=== PATIENT | female | born 1960 | race Caucasian/White ===

== ENCOUNTER 2017-01-09 13:48 | Emergency (ER) | payer MEDICARE ==
--- NOTE | ~2017-01-09 | ER ---
PATIENT'S NAME: KEIRY MODI [facility] AGE: 56 Y [address] ROOM: [place] [address] LOCATION: [facility] ADMIT DATE: 01/09/2017 ER/Outpatient Report DISCHARGE DATE: 01/09/2017 FAMILY PHYSICIAN: PHYSICIAN, NO ATTENDING PHYSICIAN: Rodrigo Cannon Time of Arrival: 1348 hours. Time of Evaluation: 1348. CHIEF COMPLAINT: Recent falls and chronic low back pain. HISTORY OF PRESENT ILLNESS: This is a 56-year-old female, who presents to the ER with her . The patient has never been seen here before, and she states that she has chronic medical history. She states that she has had chronic low back pain for over 25 years and has seen multiple doctors for it. She states that she was supposed to have a surgery done into her lower back, but decided to work with a pain specialist instead of having her back surgery, and now she states that she is regretting that at this time. She states she has chronic pain that radiates into her right foot. She states she has had no loss of bowel or bladder. Her states that she has had recent weight loss as well. She states she has not been running any fevers. No chills. They recently moved to [place] from [place] and are up by [email or web address]. She was evaluated in [place] recently and was just hospitalized there for an unresponsive episode. She states that she has not had any recent MRIs or imaging of her lower back besides x-rays. Her states that she has had some ground level falls, in which she did strike her head. He states that these falls have recurred over the past 5 or 6 years, but she has never had a CAT scan done of her head to make sure that everything has been okay. She has chronic hearing loss as well. She denies any dizziness or lightheadedness at this time. She states she does have some weakness in her right lower extremity secondary to her lower back pain. ALLERGIES: PLEASE SEE MEDICATION LIST IN NURSE'S NOTES. MEDICATIONS: Please see medication list in nurse's notes. PAST MEDICAL HISTORY: 1. History of degenerative disk disease with chronic low back pain with radiculopathy down her right leg. 2. History of colitis. 3. History of rheumatoid arthritis. PATIENT'S NAME: KEIRY MODI [facility] AGE: 56 Y [address] ROOM: [place], [place] [address] LOCATION: ED ADMIT DATE: 01/09/2017 ER/Outpatient Report DISCHARGE DATE: 01/09/2017 FAMILY PHYSICIAN: PHYSICIAN, NO ATTENDING PHYSICIAN: Rodrigo Cannon 4. Chronic history of weight loss and hard of hearing. SOCIAL HISTORY: Denies smoking, drug, or alcohol use. REVIEW OF SYSTEMS: All systems were reviewed and were negative with the exception of those discussed in the HPI. PHYSICAL EXAMINATION: VITAL SIGNS: Blood pressure is 190/105, pulse 123, respirations 18, temperature 98.3 degrees tympanically, saturations 94% on room air. Farhan Coma Score is 15. GENERAL: An alert, calm female, in no acute distress. Her and her were a little unclear of why exactly they were here in the emergency room, but they both tell different parts of her chronic past medical history. HEENT: Head: Normocephalic. Eyes: Pupils are equal and reactive to light. She does display moist mucous membranes. NECK: Supple. No lymphadenopathy. LUNGS: Clear to auscultation. HEART: Tachycardic. Normal rhythm. EXTREMITIES: No clubbing or edema noted. She has decreased strength in her right lower extremity secondary to her low back pain. She does have tenderness with light palpation over the top of her right foot if she does withdrawal her foot up into her stomach when I do palpate the skin of the top of her right foot. She has equal strength bilaterally upper extremities. She has good pedal pulses bilaterally. NEURO: Cranial nerves 2 through 12 grossly intact. Gait was not observed, but she is able to stand up from a wheelchair, transfer to toilet and stand at sink to wash her hands with no difficulty. LABORATORY DATA AND X-RAYS: CBC: White count is 7.6, hemoglobin 14.2, platelets 308, ANC is 5.1. CMS: Sodium is 132, potassium is 3.5, BUN is 15, creatinine is 0.7, estimated GFR is greater than 60. Urinalysis is negative for any infection. A CT scan of the head, no acute abnormalities were seen. She does have some nonspecific white matter changes. No acute findings. CT of her lumbar spine shows degenerative changes at L4-L5. She has moderate to severe canal stenosis, right greater than left. She also has some L5-S1 moderate degenerative disk disease. IMPRESSION: 1. Acute on chronic low back pain. 2. Recent ground level fall. 3. History of colitis. PATIENT'S NAME: KEIRY MODI [facility] AGE: 56 Y [address] ROOM: [place] [address] LOCATION: ED ADMIT DATE: 01/09/2017 ER/Outpatient Report DISCHARGE DATE: 01/09/2017 FAMILY PHYSICIAN: PHYSICIAN, ONEIL ATTENDING PHYSICIAN: Rodrigo Cannon 4. History of rheumatoid arthritis. 5. History of hypertension. ASSESSMENT AND PLAN: The patient did rest comfortably the entire stay. I did spend a significant amount of time listening to the story as well as getting labs and dictations sent from [place] and [place]. The patient did not request any pain medication while she was here. All of her labs and CT scan seem stable compared to her prior dictations. I would like her to establish care with a primary care physician here in [place], so I did give her some business cards for that as well as establish care for her pain needs, so we did give her the pain clinic office as well. The patient just needs to continue to use her home medications as directed. She needs to monitor her symptoms. I advised her to call to make an appointment tomorrow for followup care. The patient and the patient's understand and agree with care. RICHA HARRY PA-C FOR DO HARRIET LYONS/suni /[id number] d: t: 01/13/17 1318, OUTPATIENT REPORT
[2017-01-09 14:40] LABS: BASOPHIL # 0.1 K/uL (0.0-0.2); BASOPHIL % 0.7 %; EOSINOPHIL # 0.1 K/uL (0.0-0.5); EOSINOPHIL % 0.8 %; HEMATOCRIT 41.3 % (33.0-46.0); HEMOGLOBIN 14.2 g/dL (10.0-15.0); IMMATURE GRANULOCYTE % 0.3 %; LYMPHOCYTE # 1.9 K/uL (0.8-4.0); MCH 29.7 pg (27.0-34.0); MCHC 34.4 gm/dL (32.0-36.5); MCV 86.4 fl (83.0-98.0); MONOCYTE # 0.5 K/uL (0.0-1.0); MONOCYTE % 6.2 %; MPV 9.1 fl (9.4-12.4); NEUTROPHIL # (ANC) 5.1 K/uL (1.8-7.8); NRBC % 0 /100WBC (0-0.00); PLATELET COUNT 308 K/uL (150-450); RBC 4.78 M/uL (3.50-5.50); WBC 7.6 K/uL (4.0-11.0)
[2017-01-09 14:57] LABS: ALBUMIN 4.2 gm/dL (3.5-5.0); ALK PHOS 102 IU/L (33-138); ALT 13 IU/L (12-78); ANION GAP 11.5 (10.0-19.0); AST 8 IU/L (10-40); BLOOD UREA NITROGEN 15 mg/dL (6-24); CALCIUM 9.1 mg/dL (8.5-10.5); CHLORIDE 97 mMol/L (96-110); CO2 27 mMol/L (22-32); CREATININE 0.7 mg/dL (0.5-1.1); ESTIMATED GFR (MDRD EQUATION) > 60; POTASSIUM 3.5 mMol/L (3.7-5.1); SODIUM 132 mMol/L (135-145); TOTAL BILIRUBIN 0.5 mg/dL (0.0-1.5)
[2017-01-09 16:22] LABS: BILIRUBIN URINE NEGATIVE (NEGATIVE); BLOOD URINE 25 /UL (NEGATIVE); COLOR URINE STRAW (YELLOW); GLUCOSE URINE NEGATIVE (NEGATIVE); KETONE URINE NEGATIVE (NEGATIVE); LEUKOCYTES URINE NEGATIVE /UL (NEGATIVE); NITRITE URINE NEGATIVE (NEGATIVE); PROTEIN URINE NEGATIVE (NEGATIVE); TURBIDITY URINE CLEAR (CLEAR); UROBILINOGEN URINE NORMAL (NORMAL)
[2017-01-09 16:31] LABS: BACTERIA URINE NEGATIVE (NEGATIVE); EPITHELIAL URINE 0-2 #/HPF (NEGATIVE); RBC URINE 0-2 #/HPF (NEGATIVE); WBC URINE 0-2 #/HPF (NEGATIVE)
== END 2017-01-09 16:44 | disposition disaster alternative care site (69) ==
LOC: GMED 13:48
PROVIDERS: Emergency Medicine
DX: M54.5 Low back pain (principal); G89.29 Other chronic pain; Z91.81 History of falling; Z87.19 Personal history of other diseases of the digestive system; Z87.39 Personal history of other diseases of the musculoskeletal system and connective tissue; Z88.8 Allergy status to other drugs, medicaments and biological substances; Z79.899 Other long term (current) drug therapy; I10 Essential (primary) hypertension